=== PATIENT | male | born 1995 | race Two or more races ===

== ENCOUNTER 2020-11-09 01:47 | Emergency (ER) | payer MEDICAID ==
[~2020-11-09] VITALS: Ht 182.9 cm; Wt 81.6 kg
[2020-11-09 03:43] VITALS: BP 140/80
[2020-11-09] MEDS ORDERED: TETANUS-DIPTH-ACEL PERTUSSIS 0.5ML SYR Tdap IM ONE (06:15)
[2020-11-09] MEDS ORDERED: cefTRIAXone W LIDOCAINE 1 GM IM IM ONE (06:15)
[2020-11-09] MEDS ORDERED: cefTRIAXone SOD 1,000 MG VL IM ONE (06:30)
== END 2020-11-09 06:41 | disposition home or self-care (01) ==
LOC: ER 01:51 → EDSEX 01:51 → ER 06:41
DX: L05.01 Pilonidal cyst with abscess (principal); F12.10 Cannabis abuse, uncomplicated; F41.9 Anxiety disorder, unspecified; F32.9 Major depressive disorder, single episode, unspecified
CPT/HCPCS: 10080; 90471; 90715; 96372; 99284; J0696

== ENCOUNTER 2020-11-11 16:28 | Emergency (ER) | payer MEDICAID ==
[~2020-11-11] VITALS: Ht 185.4 cm; Wt 81.6 kg
[2020-11-11 16:29] VITALS: BP 125/65
== END 2020-11-11 17:52 | disposition home or self-care (01) ==
LOC: ER 16:30
DX: L02.31 Cutaneous abscess of buttock (principal); F12.10 Cannabis abuse, uncomplicated; Z48.01 Encounter for change or removal of surgical wound dressing